=== PATIENT | female | born 1980 | race Caucasian/White ===

== ENCOUNTER 2016-05-23 02:53 | Emergency (ER) | payer MEDICARE, OTHER ==
[2016-05-23] MEDS ORDERED: ONDANSETRON 4 MG ODT TAB ONE (03:46)
[2016-05-23] MEDS ORDERED: OXYCODONE/ACETAMINOPHEN 5/325 MG TABLET ONE (03:46)
[2016-05-23] MEDS ORDERED: SODIUM CHLORIDE 0.9% 1,000 ML ONE (05:32)
[2016-05-23 05:50] LABS: ABSOLUTE NEUTROPHIL COUNT 8.3 K/mm3 (1.8-7.7); BASO # 0.1 K/mm3 (0.0-0.2); BASO % 0.9 % (0.2-1.0); EOS # 0.3 (0.0-0.5); HEMATOCRIT 38.4 % (37.0-47.0); HEMOGLOBIN 12.5 gm/l (12.0-16.0); IMM NEUT # 0.1 K/mm3 (0-0.2); IMM NEUT% 0.6 % (0-1); LYMPH # 2.9 (1.0-4.8); MEAN CELL VOLUME 86.9 fl (81.0-99.0); MEAN CORPUSCULAR HEMOGLOBIN 28.3 pg (27.0-31.0); MEAN CORPUSCULAR HGB CONC 32.6 g/dl (33.0-37.0); MEAN PLATELET VOLUME 9.2 fl (7.4-10.4); MONO # 1.1 (0.0-0.8); MONO % 8.2 % (4-12); NEUT % 65.3 % (43-75); PLATELET COUNT 461 K/mm3 (130-400); RED CELL DISTRIBUTION WIDTH 12.9 % (11.5-14.5)
== END 2016-05-23 06:14 | disposition home or self-care (01) ==
LOC: ED 02:53
DX: I97.618 Postprocedural hemorrhage of a circulatory system organ or structure following other circulatory system procedure (principal); I10 Essential (primary) hypertension; Y83.8 Other surgical procedures as the cause of abnormal reaction of the patient, or of later complication, without mention of misadventure at the time of the procedure
CPT/HCPCS: 84703; 85025; 80048; 86901; 86850 ×3; 99284; 82962; 99283; A9270 ×2; J7030